=== PATIENT | male | born 1975 | race Caucasian/White ===

== ENCOUNTER → 2017-06-13 | Outpatient (CLI) | payer OTHER ==
--- NOTE | 2017-06-13 11:30 | RAD ---
Deep Doppler renal ultrasound, 06/13/2017: History: Hypertension Duplex evaluation of the main renal arteries was performed including grayscale, color flow and spectral Doppler analysis. No elevated velocities are seen in either main renal artery to suggest significant stenosis. No parvus/tardus phenomena is seen. The right kidney measures 13 cm in length while the left kidney measures 11.3 cm. IMPRESSION: No duplex evidence of significant renal artery stenosis.
== END | disposition home or self-care (01) ==
LOC: US 07:56
PROVIDERS: ATTEND Family Medicine
DX: I10 Essential (primary) hypertension (principal)
CPT/HCPCS: 93975